=== PATIENT | male | born 1990 | race Caucasian/White ===

== ENCOUNTER 2024-05-09 04:11 | Emergency (ER) | payer BC ==
[~2024-05-09] VITALS: Ht 185.4 cm; Wt 86.2 kg
[~2024-05-09 04:11] MED LIST: NKHM
[2024-05-09] MEDS ORDERED: Ketorolac Tromethamine 60 MG/2 ML VIAL IM ONE (04:40)
[2024-05-09] MEDS ORDERED: NAPROXEN250 MG PO (04:40)
== END 2024-05-09 04:55 | disposition home or self-care (01) ==
LOC: ED 04:11
DX: M77.9 Enthesopathy, unspecified (principal); M77.8 Other enthesopathies, not elsewhere classified